=== PATIENT | female | born 1980 | race Caucasian/White ===

== ENCOUNTER 2020-02-13 19:20 | Inpatient (IN) | payer MEDICARE, OTHER ==
[~2020-02-13] VITALS: Ht 157.5 cm; Wt 107.2 kg
[~2020-02-13 19:20] MED LIST: ASPI81TA39 PO; ATOR20TA86 PO; FURO20 PO; GABAPENTIN; INSLAN; INSNOV; LISI-662 PO; METO25 PO; OXYC1TAB PO; POTA-92 PO
[2020-02-13] MEDS ORDERED: ACETAMINOPHEN 500 MG TABLET PO ONE (20:00)
[2020-02-13] MEDS ORDERED: VITA-328 PO (20:01)
[2020-02-13] MEDS ORDERED: SENN8.8S6 PO (20:01)
[2020-02-13] MEDS ORDERED: FERR236T3 PO (20:01)
[2020-02-13 21:07] LABS: BASOPHILS % (AUTO) 0.9 % (0.0-2.0); EOSINOPHILS % (AUTO) 0.1 % (1.0-6.0); HEMATOCRIT 35.4 % (36-46); HEMOGLOBIN 11.5 g/dL (12.0-16.0); LYMPHOCYTES # (AUTO) 1.1 K/uL (1.0-4.8); LYMPHOCYTES % (AUTO) 22.7 % (22.0-44.0); MEAN CORPUSCULAR HEMOGLOBIN 30.5 pg (26.0-34.0); MEAN CORPUSCULAR HGB CONC 32.4 G/dL (31.0-37.0); MEAN CORPUSCULAR VOLUME 94 fL (80-100); MONOCYTES # (AUTO) 0.2 K/uL (0.1-1.0); MONOCYTES % (AUTO) 3.2 % (2.0-9.0); NEUTROPHILS # (AUTO) 3.6 K/uL (1.8-7.7); NEUTROPHILS % (AUTO) 73.1 % (40.0-70.0); PLATELET COUNT (AUTO) 143 K/uL (150-450); RED BLOOD CELL COUNT(AUTO) 3.77 MIL/uL (4.00-5.20); RED CELL DISTRIBUTION WIDTH 19.8 % (11.5-14.5)
[2020-02-13 21:16] LABS: CALCIUM, TOTAL 7.3 mg/dL (8.8-10.5); CREATININE 9.6 mg/dL (0.60-1.30)
[2020-02-13 21:20] LABS: D-DIMER 1.58 mg/L FEU (0.00-0.50)
[2020-02-13] MEDS ORDERED: ONDANSETRON HCL 4 MG/2 ML VIAL IVP PRN (21:30)
[2020-02-13] MEDS ORDERED: INSULIN REGULAR, HUMAN 100 UNITS/ML IVP ONE (21:30)
[2020-02-13] MEDS ORDERED: DEXTROSE 50%-WATER 25 GM/50 ML SYRINGE IVP ONE (21:30)
[2020-02-13] MEDS ORDERED: SODIUM POLYSTYRENE SULFONATE 15 GM/60 ML SUSPENSION BOTTLE PO ONE (21:30)
[2020-02-13] MEDS ORDERED: ACETAMINOPHEN 325 MG TABLET PO PRN (21:30)
[2020-02-13] MEDS ORDERED: CALCIUM GLUCONATE 100 MG/ML 10 ML IVP ONE (21:30)
[2020-02-13] MEDS ORDERED: SODIUM BICARBONATE [ADULT] 8.4% 50 MEQ/50 ML SYRINGE IVP ONE (21:30)
[2020-02-13 21:31] LABS: LACTIC ACID 1.3 mmol/L (0.4-2.0)
[2020-02-13 21:47] LABS: ALBUMIN 2.8 g/dL (3.4-5.0); BILIRUBIN,TOTAL 0.5 mg/dL (0.1-1.0); MAGNESIUM 2.1 mg/dL (1.80-2.40); TOTAL PROTEIN, SERUM 8.3 g/dL (6.4-8.2)
[2020-02-13 22:56] LABS: GLUCOMETER DEV NAME(LOC) AHU.; GLUCOSE,POINT OF CARE 129 MG/DL (70-110)
[2020-02-13 23:29] VITALS: BP 129/60
[2020-02-14] MEDS ORDERED: PNEUMOCOCCAL VACCINE POLYVALENT 0.5 ML VIAL [PPSV23] IM ONE (00:15)
[2020-02-14] MEDS ORDERED: MAGNESIUM HYDROXIDE SUSPENSION 30 ML UDCUP PO PRN (01:15)
[2020-02-14] MEDS ORDERED: HEPARIN SODIUM,PORCINE 5,000 UNITS/ML VIAL IVP PRN ×2 (01:15)
[2020-02-14] MEDS ORDERED: IPRATROPIUM BROMIDE 0.5 MG/2.5 ML NEB SOLUTION NEB PRN (01:15)
[2020-02-14] MEDS ORDERED: ALBUTEROL SULFATE 2.5 MG/0.5 ML NEB SOLUTION NEB PRN (01:15)
[2020-02-14] MEDS ORDERED: BISACODYL 10 MG RECTAL RECTAL SUPPOSITORY PR PRN (01:15)
[2020-02-14] MEDS ORDERED: ZOLPIDEM TARTRATE 5 MG TABLET PO PRN (01:15)
[2020-02-14] MEDS: HEPARIN SODIUM 25000 UNITS/D5W 250 ML IV PRN (01:49)
[2020-02-14 05:15] VITALS: BP 152/60
[2020-02-14 07:38] VITALS: BP 158/64
[2020-02-14] MEDS ORDERED: HEPARIN SODIUM,PORCINE 5,000 UNITS/ML VIAL SQ SCH (08:00)
[2020-02-14] MEDS: HYDROCODONE/ACETAMINOPHEN 5-325 MG TABLET PO PRN ×2 (08:02→14:46)
[2020-02-14] MEDS: DOCUSATE SODIUM 100 MG CAPSULE PO SCH ×2 (08:02→20:33)
[2020-02-14] MEDS: METOPROLOL TARTRATE 25 MG TABLET PO SCH ×2 (08:02→17:34)
[2020-02-14 08:17] LABS: BASOPHILS % (AUTO) 0.8 % (0.0-2.0); EOSINOPHILS % (AUTO) 0.1 % (1.0-6.0); HEMATOCRIT 36.2 % (36-46); HEMOGLOBIN 11.8 g/dL (12.0-16.0); LYMPHOCYTES # (AUTO) 1.4 K/uL (1.0-4.8); LYMPHOCYTES % (AUTO) 28.1 % (22.0-44.0); MEAN CORPUSCULAR HEMOGLOBIN 30.7 pg (26.0-34.0); MEAN CORPUSCULAR HGB CONC 32.4 G/dL (31.0-37.0); MEAN CORPUSCULAR VOLUME 95 fL (80-100); MONOCYTES # (AUTO) 0.1 K/uL (0.1-1.0); MONOCYTES % (AUTO) 2.2 % (2.0-9.0); NEUTROPHILS # (AUTO) 3.3 K/uL (1.8-7.7); NEUTROPHILS % (AUTO) 68.8 % (40.0-70.0); PLATELET COUNT (AUTO) 138 K/uL (150-450); RED BLOOD CELL COUNT(AUTO) 3.83 MIL/uL (4.00-5.20); RED CELL DISTRIBUTION WIDTH 19.8 % (11.5-14.5)
[2020-02-14 08:33] LABS: PROTHROMBIN TIME 10.9 SEC (9.4-11.6)
[2020-02-14] MEDS: ONDANSETRON HCL 4 MG/2 ML VIAL IVP PRN ×2 (08:56→20:33)
[2020-02-14 11:24] VITALS: BP 154/66
[2020-02-14] MEDS ORDERED: SODIUM CHLORIDE 0.9% 1,000 ML IV SCH (12:15)
[2020-02-14] MEDS: SEVELAMER CARBONATE 800 MG TABLET PO SCH ×2 (12:39→17:55)
[2020-02-14 12:45] LABS: GLUCOMETER DEV NAME(LOC) 5N.3; GLUCOSE,POINT OF CARE 108 MG/DL (70-110)
[2020-02-14 15:15] VITALS: BP 187/35
[2020-02-14 16:27] LABS: BASOPHILS % (AUTO) 0.6 % (0.0-2.0); EOSINOPHILS % (AUTO) 0.2 % (1.0-6.0); HEMATOCRIT 35.7 % (36-46); HEMOGLOBIN 11.5 g/dL (12.0-16.0); LYMPHOCYTES # (AUTO) 1.4 K/uL (1.0-4.8); LYMPHOCYTES % (AUTO) 23.7 % (22.0-44.0); MEAN CORPUSCULAR HEMOGLOBIN 30.2 pg (26.0-34.0); MEAN CORPUSCULAR HGB CONC 32.3 G/dL (31.0-37.0); MEAN CORPUSCULAR VOLUME 93 fL (80-100); MONOCYTES # (AUTO) 0.1 K/uL (0.1-1.0); MONOCYTES % (AUTO) 2.5 % (2.0-9.0); NEUTROPHILS # (AUTO) 4.2 K/uL (1.8-7.7); PLATELET COUNT (AUTO) 148 K/uL (150-450); RED BLOOD CELL COUNT(AUTO) 3.82 MIL/uL (4.00-5.20); RED CELL DISTRIBUTION WIDTH 19.5 % (11.5-14.5)
[2020-02-14 18:16] LABS: GLUCOMETER DEV NAME(LOC) 5N.3; GLUCOSE,POINT OF CARE 105 MG/DL (70-110)
[2020-02-14] MEDS: ATORVASTATIN CALCIUM 20 MG TABLET PO SCH (20:33)
[2020-02-14] MEDS: ACETAMINOPHEN 325 MG TABLET PO PRN (20:41)
[2020-02-14 20:44] VITALS: BP 155/61
[2020-02-15] VITALS (7 sets, daily range): BP systolic 126–176; BP diastolic 51–84
[2020-02-15 00:55] LABS: GLUCOMETER DEV NAME(LOC) 5S.1; GLUCOSE,POINT OF CARE 85 MG/DL (70-110)
[2020-02-15 04:25] LABS: GLUCOMETER DEV NAME(LOC) 5N.3; GLUCOSE,POINT OF CARE 162 MG/DL (70-110)
[2020-02-15] MEDS: HEPARIN SODIUM 25000 UNITS/D5W 250 ML IV PRN (04:38)
[2020-02-15 04:50] LABS: BASOPHILS % (AUTO) 0.8 % (0.0-2.0); EOSINOPHILS % (AUTO) 0.1 % (1.0-6.0); HEMATOCRIT 36.7 % (36-46); HEMOGLOBIN 11.4 g/dL (12.0-16.0); LYMPHOCYTES # (AUTO) 1.3 K/uL (1.0-4.8); LYMPHOCYTES % (AUTO) 25.9 % (22.0-44.0); MEAN CORPUSCULAR HEMOGLOBIN 29.4 pg (26.0-34.0); MEAN CORPUSCULAR HGB CONC 31.2 G/dL (31.0-37.0); MEAN CORPUSCULAR VOLUME 94 fL (80-100); MONOCYTES # (AUTO) 0.2 K/uL (0.1-1.0); MONOCYTES % (AUTO) 3.2 % (2.0-9.0); NEUTROPHILS # (AUTO) 3.6 K/uL (1.8-7.7); PLATELET COUNT (AUTO) 154 K/uL (150-450); RED BLOOD CELL COUNT(AUTO) 3.88 MIL/uL (4.00-5.20); RED CELL DISTRIBUTION WIDTH 19.1 % (11.5-14.5)
[2020-02-15 07:28] LABS: CALCIUM, TOTAL 7.7 mg/dL (8.8-10.5); CREATININE 6.97 mg/dL (0.60-1.30); POTASSIUM 4.4 mmol/L (3.5-5.1)
[2020-02-15] MEDS: SEVELAMER CARBONATE 800 MG TABLET PO SCH ×3 (08:54→18:16)
[2020-02-15] MEDS: METOPROLOL TARTRATE 25 MG TABLET PO SCH ×2 (08:54→21:14)
[2020-02-15] MEDS: DOCUSATE SODIUM 100 MG CAPSULE PO SCH ×2 (08:54→21:00)
[2020-02-15] MEDS: ONDANSETRON HCL 4 MG/2 ML VIAL IVP PRN (08:54)
[2020-02-15] MEDS: ACETAMINOPHEN 325 MG TABLET PO PRN ×3 (08:55→21:24)
[2020-02-15] MEDS: ATORVASTATIN CALCIUM 20 MG TABLET PO SCH (21:14)
[2020-02-15 22:48] LABS: GLUCOMETER DEV NAME(LOC) 5N.1; GLUCOSE,POINT OF CARE 149 MG/DL (70-110)
[2020-02-15 23:36] LABS: GLUCOMETER DEV NAME(LOC) 5N.3; GLUCOSE,POINT OF CARE 125 MG/DL (70-110)
[2020-02-16] MEDS: ONDANSETRON HCL 4 MG/2 ML VIAL IVP PRN ×4 (00:59→23:06)
[2020-02-16 04:36] VITALS: BP 130/54
[2020-02-16 08:42] VITALS: BP 153/76
[2020-02-16] MEDS: SEVELAMER CARBONATE 800 MG TABLET PO SCH ×3 (08:52→17:59)
[2020-02-16] MEDS: METOPROLOL TARTRATE 25 MG TABLET PO SCH ×2 (08:52→23:07)
[2020-02-16] MEDS: DOCUSATE SODIUM 100 MG CAPSULE PO SCH ×2 (08:52→23:07)
[2020-02-16 11:41] VITALS: BP 108/49
[2020-02-16 13:14] LABS: GLUCOMETER DEV NAME(LOC) 5S.1; GLUCOSE,POINT OF CARE 103 MG/DL (70-110)
[2020-02-16 16:25] VITALS: BP 148/70
[2020-02-16] MEDS: ACETAMINOPHEN 325 MG TABLET PO PRN (17:59)
[2020-02-16 18:06] LABS: GLUCOMETER DEV NAME(LOC) 5S.1; GLUCOSE,POINT OF CARE 98 MG/DL (70-110)
[2020-02-16 21:08] VITALS: BP 110/51
[2020-02-16] MEDS: ATORVASTATIN CALCIUM 20 MG TABLET PO SCH (23:06)
[2020-02-17] VITALS: BP 141/60
[2020-02-17 04:54] VITALS: BP 150/69
[2020-02-17] MEDS: ACETAMINOPHEN 325 MG TABLET PO PRN (05:36)
[2020-02-17] MEDS: ONDANSETRON HCL 4 MG/2 ML VIAL IVP PRN ×3 (05:37→20:16)
[2020-02-17] MEDS: HEPARIN SODIUM 25000 UNITS/D5W 250 ML IV PRN (07:29)
[2020-02-17 08:39] VITALS: BP 122/66
[2020-02-17] MEDS: SEVELAMER CARBONATE 800 MG TABLET PO SCH ×3 (09:09→17:39)
[2020-02-17] MEDS: DOCUSATE SODIUM 100 MG CAPSULE PO SCH ×2 (09:09→20:09)
[2020-02-17] MEDS: METOPROLOL TARTRATE 25 MG TABLET PO SCH ×2 (09:09→20:09)
[2020-02-17] MEDS ORDERED: LACTULOSE 20 GM/30 ML SOLUTION UDCUP PO ONE (09:45)
[2020-02-17 12:39] VITALS: BP 121/54
[2020-02-17 15:35] VITALS: BP 115/81
[2020-02-17] MEDS: ATORVASTATIN CALCIUM 20 MG TABLET PO SCH (20:09)
[2020-02-17] MEDS: MORPHINE SULFATE 2 MG/ML SYRINGE IVP PRN (20:22)
[2020-02-17 20:34] VITALS: BP 150/76
[2020-02-18 00:31] VITALS: BP 119/54
[2020-02-18] MEDS: MORPHINE SULFATE 2 MG/ML SYRINGE IVP PRN ×2 (04:49→20:26)
[2020-02-18 05:00] VITALS: BP 115/67
[2020-02-18] MEDS: ONDANSETRON HCL 4 MG/2 ML VIAL IVP PRN ×3 (06:08→17:26)
[2020-02-18 07:26] LABS: BASOPHILS % (AUTO) 0.5 % (0.0-2.0); EOSINOPHILS % (AUTO) 0.7 % (1.0-6.0); HEMATOCRIT 33.8 % (36-46); HEMOGLOBIN 10.7 g/dL (12.0-16.0); LYMPHOCYTES # (AUTO) 1.2 K/uL (1.0-4.8); LYMPHOCYTES % (AUTO) 13.5 % (22.0-44.0); MEAN CORPUSCULAR HEMOGLOBIN 29.8 pg (26.0-34.0); MEAN CORPUSCULAR HGB CONC 31.7 G/dL (31.0-37.0); MEAN CORPUSCULAR VOLUME 94 fL (80-100); MONOCYTES # (AUTO) 0.3 K/uL (0.1-1.0); MONOCYTES % (AUTO) 3.5 % (2.0-9.0); NEUTROPHILS # (AUTO) 7.4 K/uL (1.8-7.7); NEUTROPHILS % (AUTO) 81.8 % (40.0-70.0); PLATELET COUNT (AUTO) 277 K/uL (150-450); RED BLOOD CELL COUNT(AUTO) 3.59 MIL/uL (4.00-5.20); RED CELL DISTRIBUTION WIDTH 18.9 % (11.5-14.5)
[2020-02-18 08:07] VITALS: BP 132/71
[2020-02-18] MEDS: SEVELAMER CARBONATE 800 MG TABLET PO SCH ×4 (08:23→17:13)
[2020-02-18] MEDS: METOPROLOL TARTRATE 25 MG TABLET PO SCH ×2 (08:23→20:27)
[2020-02-18] MEDS: DEXAMETHASONE SOD PHOS 10 MG/ML VIAL IVP SCH (08:23)
[2020-02-18] MEDS: HEPARIN SODIUM 25000 UNITS/D5W 250 ML IV PRN (08:25)
[2020-02-18] MEDS: DOCUSATE SODIUM 100 MG CAPSULE PO SCH ×2 (08:32→20:26)
[2020-02-18 11:19] VITALS: BP 135/64
[2020-02-18 16:02] VITALS: BP 158/78
[2020-02-18 20:00] VITALS: BP 182/50
[2020-02-18] MEDS: ATORVASTATIN CALCIUM 20 MG TABLET PO SCH (20:26)
[2020-02-19] VITALS (7 sets, daily range): BP systolic 118–186; BP diastolic 41–78
[2020-02-19] MEDS: METOPROLOL TARTRATE 25 MG TABLET PO SCH ×3 (00:10→20:46)
[2020-02-19] MEDS: HEPARIN SODIUM 25000 UNITS/D5W 250 ML IV PRN (03:06)
[2020-02-19] MEDS: SEVELAMER CARBONATE 800 MG TABLET PO SCH ×3 (08:09→17:35)
[2020-02-19] MEDS: DOCUSATE SODIUM 100 MG CAPSULE PO SCH ×2 (08:10→20:45)
[2020-02-19] MEDS: DEXAMETHASONE SOD PHOS 10 MG/ML VIAL IVP SCH (08:12)
[2020-02-19] MEDS: MORPHINE SULFATE 2 MG/ML SYRINGE IVP PRN (08:18)
[2020-02-19] MEDS: ONDANSETRON HCL 4 MG/2 ML VIAL IVP PRN (08:18)
[2020-02-19] MEDS: ATORVASTATIN CALCIUM 20 MG TABLET PO SCH (20:46)
[2020-02-20] VITALS (7 sets, daily range): BP systolic 141–180; BP diastolic 66–75
[2020-02-20] MEDS: CloNIDine HCL 0.1 MG TABLET PO PRN (01:16)
[2020-02-20] MEDS: SEVELAMER CARBONATE 800 MG TABLET PO SCH ×3 (08:33→18:00)
[2020-02-20] MEDS: DEXAMETHASONE SOD PHOS 10 MG/ML VIAL IVP SCH (08:34)
[2020-02-20] MEDS: DOCUSATE SODIUM 100 MG CAPSULE PO SCH ×2 (08:34→21:10)
[2020-02-20] MEDS: METOPROLOL TARTRATE 25 MG TABLET PO SCH ×2 (09:00→21:10)
[2020-02-20] MEDS ORDERED: SODIUM CHLORIDE 0.9% 2,000 ML ONE (15:06)
[2020-02-20] MEDS: ATORVASTATIN CALCIUM 20 MG TABLET PO SCH (21:10)
[2020-02-20] MEDS: HYDROCODONE/ACETAMINOPHEN 5-325 MG TABLET PO PRN (21:10)
[2020-02-21 00:33] VITALS: BP 171/70
[2020-02-21] MEDS: CloNIDine HCL 0.1 MG TABLET PO PRN (01:21)
[2020-02-21 04:00] VITALS: BP 137/81
[2020-02-21 06:41] LABS: BASOPHILS % (AUTO) 0.3 % (0.0-2.0); EOSINOPHILS % (AUTO) 0.1 % (1.0-6.0); HEMATOCRIT 34.5 % (36-46); HEMOGLOBIN 11.1 g/dL (12.0-16.0); LYMPHOCYTES # (AUTO) 0.8 K/uL (1.0-4.8); LYMPHOCYTES % (AUTO) 11.6 % (22.0-44.0); MEAN CORPUSCULAR HEMOGLOBIN 30.9 pg (26.0-34.0); MEAN CORPUSCULAR HGB CONC 32.3 G/dL (31.0-37.0); MEAN CORPUSCULAR VOLUME 96 fL (80-100); MONOCYTES # (AUTO) 0.4 K/uL (0.1-1.0); MONOCYTES % (AUTO) 6.6 % (2.0-9.0); NEUTROPHILS # (AUTO) 5.5 K/uL (1.8-7.7); NEUTROPHILS % (AUTO) 81.4 % (40.0-70.0); PLATELET COUNT (AUTO) 379 K/uL (150-450); RED BLOOD CELL COUNT(AUTO) 3.61 MIL/uL (4.00-5.20); RED CELL DISTRIBUTION WIDTH 18.1 % (11.5-14.5)
[2020-02-21 07:37] VITALS: BP 173/80
[2020-02-21 08:12] LABS: ALBUMIN 2.5 g/dL (3.4-5.0); BILIRUBIN,TOTAL 0.4 mg/dL (0.1-1.0); C-REACTIVE PROTEIN QUANT 5.67 mg/dL (0.00-0.30); CALCIUM, TOTAL 8.2 mg/dL (8.8-10.5); CREATININE 6.09 mg/dL (0.60-1.30)
[2020-02-21] MEDS: METOPROLOL TARTRATE 25 MG TABLET PO SCH ×2 (08:12→20:46)
[2020-02-21] MEDS: SEVELAMER CARBONATE 800 MG TABLET PO SCH ×3 (08:12→18:13)
[2020-02-21] MEDS: DEXAMETHASONE SOD PHOS 10 MG/ML VIAL IVP SCH (08:12)
[2020-02-21] MEDS: DOCUSATE SODIUM 100 MG CAPSULE PO SCH ×2 (08:12→20:46)
[2020-02-21 08:54] LABS: ERYTHROCYTE SEDIMENTATION RATE 100 MM/HR (0-20)
[2020-02-21 09:09] LABS: D-DIMER 1.64 mg/L FEU (0.00-0.50)
[2020-02-21] MEDS ORDERED: DEXTROSE 50%-WATER 25 GM/50 ML SYRINGE IVP PRN ×3 (10:15→15:00)
[2020-02-21] MEDS ORDERED: INSULIN LISPRO 100 UNITS/ML SQ PRN ×2 (10:15→11:45)
[2020-02-21 11:37] VITALS: BP 158/80
[2020-02-21] MEDS: HydrALAZINE HCL 50 MG TABLET PO SCH ×2 (12:32→20:46)
[2020-02-21 14:59] LABS: GLUCOMETER DEV NAME(LOC) 5N.3; GLUCOSE,POINT OF CARE > 600 MG/DL (70-110)
[2020-02-21 15:00] LABS: GLUCOMETER DEV NAME(LOC) 5N.3; GLUCOSE,POINT OF CARE > 600 MG/DL (70-110)
[2020-02-21] MEDS: INSULIN LISPRO 100 UNITS/ML SQ PRN ×3 (15:08→22:01)
[2020-02-21 15:11] VITALS: BP 132/64
[2020-02-21] MEDS: INSULIN GLARGINE,HUM.REC.ANLOG 100 UNITS/ML SQ SCH (18:11)
[2020-02-21 20:30] VITALS: BP 174/63
[2020-02-21] MEDS: ATORVASTATIN CALCIUM 20 MG TABLET PO SCH (20:46)
[2020-02-21] MEDS: HYDROCODONE/ACETAMINOPHEN 5-325 MG TABLET PO PRN (20:47)
[2020-02-21] MEDS ORDERED: INSULIN GLARGINE,HUM.REC.ANLOG 100 UNITS/ML SQ ONE (21:45)
[2020-02-22 00:36] VITALS: BP 155/79
[2020-02-22 01:08] LABS: GLUCOMETER DEV NAME(LOC) 5S.1; GLUCOSE,POINT OF CARE 347 MG/DL (70-110)
[2020-02-22 01:08] LABS: GLUCOMETER DEV NAME(LOC) 5S.1; GLUCOSE,POINT OF CARE 537 MG/DL (70-110)
[2020-02-22 04:31] VITALS: BP 152/81
[2020-02-22] MEDS: HEPARIN SODIUM 25000 UNITS/D5W 250 ML IV PRN (05:24)
[2020-02-22 06:18] LABS: GLUCOMETER DEV NAME(LOC) 5S.1; GLUCOSE,POINT OF CARE 254 MG/DL (70-110)
[2020-02-22] MEDS: INSULIN LISPRO 100 UNITS/ML SQ PRN ×2 (06:27→12:33)
[2020-02-22 07:14] LABS: BASOPHILS % (AUTO) 0.4 % (0.0-2.0); EOSINOPHILS % (AUTO) 0.6 % (1.0-6.0); HEMATOCRIT 36.3 % (36-46); HEMOGLOBIN 11.5 g/dL (12.0-16.0); LYMPHOCYTES # (AUTO) 1.5 K/uL (1.0-4.8); LYMPHOCYTES % (AUTO) 16.2 % (22.0-44.0); MEAN CORPUSCULAR HEMOGLOBIN 29.5 pg (26.0-34.0); MEAN CORPUSCULAR HGB CONC 31.6 G/dL (31.0-37.0); MEAN CORPUSCULAR VOLUME 93 fL (80-100); MONOCYTES # (AUTO) 0.6 K/uL (0.1-1.0); MONOCYTES % (AUTO) 6.7 % (2.0-9.0); NEUTROPHILS # (AUTO) 7.1 K/uL (1.8-7.7); NEUTROPHILS % (AUTO) 76.1 % (40.0-70.0); PLATELET COUNT (AUTO) 440 K/uL (150-450); RED BLOOD CELL COUNT(AUTO) 3.89 MIL/uL (4.00-5.20); RED CELL DISTRIBUTION WIDTH 17.9 % (11.5-14.5)
[2020-02-22 07:41] LABS: ALBUMIN 2.6 g/dL (3.4-5.0); BILIRUBIN,TOTAL 0.5 mg/dL (0.1-1.0); CALCIUM, TOTAL 8.6 mg/dL (8.8-10.5); CREATININE 7.25 mg/dL (0.60-1.30); POTASSIUM 5.8 mmol/L (3.5-5.1); TOTAL PROTEIN, SERUM 8.1 g/dL (6.4-8.2)
[2020-02-22 07:43] VITALS: BP 171/83
[2020-02-22 07:50] LABS: GLUCOMETER DEV NAME(LOC) 5S.2A; GLUCOSE,POINT OF CARE 511 MG/DL (70-110)
[2020-02-22] MEDS: DOCUSATE SODIUM 100 MG CAPSULE PO SCH ×2 (09:24→20:21)
[2020-02-22] MEDS: SEVELAMER CARBONATE 800 MG TABLET PO SCH ×3 (09:24→17:19)
[2020-02-22] MEDS: METOPROLOL TARTRATE 25 MG TABLET PO SCH ×2 (09:24→20:21)
[2020-02-22] MEDS: DEXAMETHASONE SOD PHOS 10 MG/ML VIAL IVP SCH (09:24)
[2020-02-22] MEDS: HydrALAZINE HCL 50 MG TABLET PO SCH ×2 (09:24→20:21)
[2020-02-22] MEDS: INSULIN GLARGINE,HUM.REC.ANLOG 100 UNITS/ML SQ SCH ×2 (09:25→21:00)
[2020-02-22] MEDS: HYDROCODONE/ACETAMINOPHEN 5-325 MG TABLET PO PRN (10:02)
[2020-02-22 12:00] VITALS: BP 141/52
[2020-02-22] MEDS ORDERED: DiphenhydrAMINE HCL 25 MG CAPSULE PO PRN (12:00)
[2020-02-22] MEDS: ONDANSETRON HCL 4 MG/2 ML VIAL IVP PRN (12:32)
[2020-02-22] MEDS ORDERED: SODIUM CHLORIDE 0.9% 2,000 ML ONE (16:04)
[2020-02-22 16:31] LABS: GLUCOMETER DEV NAME(LOC) 5N.3; GLUCOSE,POINT OF CARE 245 MG/DL (70-110)
[2020-02-22 16:35] VITALS: BP 164/80
[2020-02-22] MEDS ORDERED: HYDR-2924 PO (19:04)
[2020-02-22] MEDS ORDERED: INSLAN SQ (19:06)
[2020-02-22] MEDS ORDERED: SEVE800T17 PO (19:09)
[2020-02-22] MEDS ORDERED: ACET-3207 PO (19:11)
[2020-02-22] MEDS ORDERED: BISA10SU11 PR (19:14)
[2020-02-22] MEDS ORDERED: DIPH25CA85 PO (19:15)
[2020-02-22] MEDS ORDERED: CLON0.1T83 PO (19:15)
[2020-02-22] MEDS ORDERED: HYDR-4061 PO (19:17)
[2020-02-22] MEDS ORDERED: MOM30 PO (19:20)
[2020-02-22] MEDS ORDERED: AUD NEB (19:21)
[2020-02-22] MEDS ORDERED: INSU100V SQ (19:24)
[2020-02-22] MEDS ORDERED: IPRNEB IH (19:26)
[2020-02-22] MEDS: ATORVASTATIN CALCIUM 20 MG TABLET PO SCH (20:21)
[2020-02-22 21:16] VITALS: BP 159/99
== END 2020-02-22 21:20 | DRG 871 ==
LOC: EMS 19:21 → 5S 21:21 → 5N 02-16 09:52
PROVIDERS: ADMIT Hospitalist; ATTEND Hospitalist
PROC: 5A1D70Z Performance of Urinary Filtration, Intermittent, Less than 6 Hours Per Day (ICD-10-PCS; principal; 2020-02-15)
PROC: 5A1D70Z Performance of Urinary Filtration, Intermittent, Less than 6 Hours Per Day (ICD-10-PCS; 2020-02-18)
PROC: 5A1D70Z Performance of Urinary Filtration, Intermittent, Less than 6 Hours Per Day (ICD-10-PCS; 2020-02-20)
PROC: 5A1D70Z Performance of Urinary Filtration, Intermittent, Less than 6 Hours Per Day (ICD-10-PCS; 2020-02-22)
DX: A41.9 Sepsis, unspecified organism (principal); U07.1 COVID-19; N18.6 End stage renal disease; J12.89 Other viral pneumonia; N17.9 Acute kidney failure, unspecified; I12.0 Hypertensive chronic kidney disease with stage 5 chronic kidney disease or end stage renal disease; N03.9 Chronic nephritic syndrome with unspecified morphologic changes; D63.1 Anemia in chronic kidney disease; L73.2 Hidradenitis suppurativa; E11.22 Type 2 diabetes mellitus with diabetic chronic kidney disease; Z99.2 Dependence on renal dialysis; K21.9 Gastro-esophageal reflux disease without esophagitis; E78.5 Hyperlipidemia, unspecified; E78.00 Pure hypercholesterolemia, unspecified; M54.9 Dorsalgia, unspecified; K59.00 Constipation, unspecified
CPT/HCPCS: 82728; 82947; 82948; 83036; 83605; 83615; 83735; 84100; 84145; 85379; 85651; 86140; 87040; 87081; 87340; 93005; 97162; 97166; 97530; 97535; J0610; J1100; J1644; J1815; J2270; J2405; J3490; J7030; 36415-L1; 36415-TC; 71045-TC; U0003-CS